=== PATIENT | female | born 1980 | race Asian ===

== ENCOUNTER → 2021-07-18 | Outpatient (CLI) | payer OTHER ==
[2021-07-18 11:11] LABS: PLATELET COUNT, AUTOMATED 240 10^3/uL (150-450)
[2021-07-18 11:27] LABS: INR 0.97; PROTHROMBIN TIME 13.3 SECONDS (12.7-14.5)
[2021-07-18 11:28] LABS: PARTIAL THROMBOPLASTIN TIME 29.2 SECONDS (25.9-37.0)
[2021-07-18 12:19] LABS: ALBUMIN 3.7 GM/DL (3.2-5.2); ALT/SGPT 52 U/L (12-78); BILIRUBIN,DIRECT 0.1 MG/DL (0.0-0.2); BILIRUBIN,TOTAL 0.5 MG/DL (0.2-1.0); BLOOD UREA NITROGEN 12 MG/DL (7-18); FERRITIN 140 NG/ML (8-252); GLOMERULAR FILTRATION RATE > 60.0 (>60); HEPATITIS B SURFACE ANTIGEN NEGATIVE (NEGATIVE); IRON (FE) 61 UG/DL (50-170); PERCENT SATURATION 18.8 % (13.2-45.0); TOTAL IRON BINDING CAPACITY 324 UG/DL (250-450); TOTAL PROTEIN 7.9 GM/DL (6.4-8.2)
[2021-07-18 13:33] LABS: HEPATITIS C VIRUS ABY INDEX 0.1 INDEX (<0.8)
== END ==
LOC: M LAB 09:51
PROVIDERS: ATTEND Internal Medicine Gastroenterology
DX: K76.89 Other specified diseases of liver (principal)

== ENCOUNTER → 2021-07-28 | Outpatient (CLI) | payer OTHER ==
[~2021-07-28] MED LIST: AMIT25TA17 PO; CETI10CH PO; INSUH10VL SC; LISI20TA33 PO; MAGN400T33 PO; METF10004 PO; PANT20TA6 PO; PROP80TA PO; SUMA50TA2 PO; TRES100I SC; TRUL0.5I SC; ZONI25CA13 PO; [UNRECOGNIZED DRUG - CODE] PO
== END ==
LOC: M WHC 07:24
PROVIDERS: ATTEND Internal Medicine Gastroenterology
DX: K74.60 Unspecified cirrhosis of liver (principal)

== ENCOUNTER 2021-07-29 11:58 | Day surgery (SDC) | payer OTHER ==
[~2021-07-29] VITALS: Ht 170.2 cm; Wt 110.0 kg
[~2021-07-29 11:58] MED LIST changes: +NS 1,000 ML IV ONE
[2021-07-29] MEDS ORDERED: fentaNYL 100 MCG/2 ML INJECTION As Ordered ONE (12:42)
[2021-07-29] MEDS ORDERED: LIDOCAINE 2% 100MG/5ML SDV (FOR ANES.) As Ordered ONE (13:31)
[2021-07-29] MEDS ORDERED: propofoL 200 MG/20 ML VIAL As Ordered ONE (13:31)
[2021-07-29 14:30] VITALS: BP 113/66
== END 2021-07-29 14:49 | disposition home or self-care (01) ==
LOC: M OPP 11:58 → EDUNIT# 14:45 → M OPP 14:49
PROVIDERS: ATTEND Internal Medicine Gastroenterology
DX: K74.60 Unspecified cirrhosis of liver (principal); K22.89 Other specified disease of esophagus; K29.70 Gastritis, unspecified, without bleeding; K31.84 Gastroparesis; E10.9 Type 1 diabetes mellitus without complications; Z80.0 Family history of malignant neoplasm of digestive organs; Z79.4 Long term (current) use of insulin; Z79.899 Other long term (current) drug therapy
CPT/HCPCS: 43239; 81025; 88305; J3010

== ENCOUNTER → 2021-11-12 | Outpatient (CLI) | payer OTHER ==
[~2021-11-12] MED LIST changes: -NS 1,000 ML IV ONE
== END ==
LOC: M SLEEP 20:00
PROVIDERS: ATTEND Physician Assistant
DX: G47.33 Obstructive sleep apnea (adult) (pediatric) (principal); R40.0 Somnolence

== ENCOUNTER → 2022-01-05 | Outpatient (CLI) | payer OTHER ==
[2022-01-05 10:23] LABS: BASO # 0.1 10^3/uL (0.0-0.2); BASO % 0.7 % (0.0-1.0); EOS # 0.2 10^3/uL (0.0-0.5); EOS % 3.4 % (0.0-3.0); HEMATOCRIT 47.5 % (36.0-47.0); HEMOGLOBIN 15.4 g/dl (12.0-15.5); LYMPH % 29.9 % (24.0-44.0); MEAN CORPUSCULAR HEMOGLOBIN 27.7 pg (27.0-33.0); MEAN CORPUSCULAR HGB CONC 32.4 g/dl (32.0-36.5); MEAN CORPUSCULAR VOLUME 85.4 fl (80.0-96.0); MONO # 0.4 10^3/uL (0.0-0.8); MONO % 6.4 % (2.0-8.0); NEUTROPHILS # 3.9 10^3/uL (1.5-8.5); NEUTROPHILS % 59.2 % (36.0-66.0); PLATELET COUNT, AUTOMATED 211 10^3/uL (150-450); RED BLOOD COUNT 5.56 10^6/uL (4.00-5.40); WHITE BLOOD COUNT 6.7 10^3/uL (4.0-10.0)
[2022-01-05 10:57] LABS: ALT/SGPT 42 U/L (12-78); BLOOD UREA NITROGEN 9 MG/DL (7-18); CREATININE FOR GFR 0.64 MG/DL (0.55-1.30); GLOMERULAR FILTRATION RATE > 60.0 (>60)
[2022-01-05 10:58] LABS: ALBUMIN 3.7 GM/DL (3.2-5.2); BILIRUBIN,DIRECT 0.2 MG/DL (0.0-0.2); BILIRUBIN,TOTAL 0.4 MG/DL (0.2-1.0); CHOLESTEROL LEVEL 193 MG/DL (<200); CHOLESTEROL RISK RATIO 3.641 (<5); HDL CHOLESTEROL 53 MG/DL (>40); LDL CHOLESTEROL 112 MG/DL (<100); NON-HDL-C 140 MG/DL; TOTAL PROTEIN 7.8 GM/DL (6.4-8.2); TRIGLYCERIDES LEVEL 138 MG/DL (<150)
== END ==
LOC: M RAD 08:29
PROVIDERS: ATTEND Internal Medicine Gastroenterology
DX: K74.60 Unspecified cirrhosis of liver (principal)

== ENCOUNTER → 2022-01-21 | Outpatient (CLI) | payer OTHER | LOC: M SLEEP 20:00 | PROVIDERS: ATTEND Physician Assistant | DX: G47.33 Obstructive sleep apnea (adult) (pediatric) (principal) ==

== ENCOUNTER 2023-06-08 14:25 | Emergency (ER) | payer OTHER ==
[~2023-06-08] VITALS: Ht 170.2 cm; Wt 107.0 kg
[~2023-06-08 14:25] MED LIST changes: -AMIT25TA17 PO; +AMIT25TA19 PO
[2023-06-08 15:14] LABS: BASO % 0.4 % (0.0-1.0); EOS # 0.2 10^3/uL (0.0-0.5); EOS % 2.7 % (0.0-3.0); HEMATOCRIT 45.7 % (36.0-47.0); HEMOGLOBIN 15.3 g/dl (12.0-15.5); LYMPH # 2.2 10^3/uL (1.5-5.0); LYMPH % 26.7 % (24.0-44.0); MEAN CORPUSCULAR HEMOGLOBIN 28.5 pg (27.0-33.0); MEAN CORPUSCULAR HGB CONC 33.5 g/dl (32.0-36.5); MEAN CORPUSCULAR VOLUME 85.1 fl (80.0-96.0); MONO # 0.6 10^3/uL (0.0-0.8); MONO % 6.7 % (2.0-8.0); NEUTROPHILS # 5.2 10^3/uL (1.5-8.5); NEUTROPHILS % 63.3 % (36.0-66.0); PLATELET COUNT, AUTOMATED 222 10^3/uL (150-450); RED BLOOD COUNT 5.37 10^6/uL (4.00-5.40); WHITE BLOOD COUNT 8.2 10^3/uL (4.0-10.0)
[2023-06-08 15:36] LABS: C REACTIVE PROTEIN QUANTITATIV < 0.40 MG/DL (<1.0)
[2023-06-08 15:38] LABS: BLOOD UREA NITROGEN 11 MG/DL (9-23); CALCIUM LEVEL 8.9 MG/DL (8.5-10.1); CARBON DIOXIDE LEVEL 29 MMOL/L (20-31); CHLORIDE LEVEL 102 MMOL/L (98-107); CREATININE FOR GFR 0.54 MG/DL (0.55-1.30); GLOMERULAR FILTRATION RATE > 60.0 (>58); GLUCOSE, FASTING 149 MG/DL (60-100); POTASSIUM SERUM 4.4 MMOL/L (3.5-5.1); SODIUM LEVEL 136 MMOL/L (136-145)
[2023-06-08 15:40] LABS: THYROID STIMULATING HORMONE 2.129 uIU/ML (0.55-4.78)
[2023-06-08 15:45] LABS: ERYTHROCYTE SEDIMENTATION RATE 20 mm/hr (0-20)
[2023-06-08 15:47] LABS: HCG, SERUM QUALITATIVE NEGATIVE (NEGATIVE)
[2023-06-08] MEDS ORDERED: LANTINJ4 SC (16:44)
[2023-06-08] MEDS ORDERED: HOME MED LIST COMPLETE! XX SCH (16:45)
[2023-06-08] MEDS: NS 1,000 ML IV ONE (17:04)
[2023-06-08] MEDS: ONDANSETRON 4MG 2ML VIAL IV ONE (17:04)
[2023-06-08] MEDS: KETOROLAC 30 MG/ML 1ML VIAL IV ONE (17:05)
[2023-06-08 17:35] LABS: AMPHETAMINES LEVEL URINE NEGATIVE (NEGATIVE); BARBITURATES URINE NEGATIVE (NEGATIVE); BENZODIAZEPINES URINE NEGATIVE (NEGATIVE); COCAINE METABOLITE URINE NEGATIVE (NEGATIVE); METHADONE URINE NEGATIVE (NEGATIVE); OPIATES URINE NEGATIVE (NEGATIVE)
[2023-06-08 17:36] LABS: CANNABINOIDS URINE NEGATIVE (NEGATIVE); PHENCYCLIDINE URINE NEGATIVE (NEGATIVE)
[2023-06-08 17:56] LABS: RSV AMPLIFICATION NEGATIVE (NEGATIVE)
[2023-06-08 17:58] LABS: FREE T4 0.97 NG/DL (0.89-1.76)
[2023-06-08 18:15] LABS: CK-MB VALUE MASS 1.1 NG/ML (<3.6)
[2023-06-08 18:16] LABS: MB/CK RELATIVE INDEX 0.7 (< OR =4)
[2023-06-08] MEDS: TOPIRAMATE (TopAMAX) 25 MG TAB PO ONE (18:52)
[2023-06-08] MEDS: LORazepam 2 MG TAB PO ONE (18:59)
[2023-06-08] MEDS ORDERED: TOPI-21 PO (20:56)
[2023-06-08] MEDS ORDERED: AMIT50TA PO (20:56)
[2023-06-08] MEDS: diazePAM 2 MG TAB PO ONE (21:15)
[2023-06-08 21:38] VITALS: BP 151/87; TEMP 97.4; O2SAT 98
== END 2023-06-08 21:42 | disposition home or self-care (01) ==
LOC: M ED 14:25
DX: G43.809 Other migraine, not intractable, without status migrainosus (principal); E11.9 Type 2 diabetes mellitus without complications; I10 Essential (primary) hypertension; Z79.899 Other long term (current) drug therapy; Z79.4 Long term (current) use of insulin; Z79.84 Long term (current) use of oral hypoglycemic drugs
CPT/HCPCS: 70450; 70551; 71045; 80048; 80307; 81001; 82550; 82553; 83735; 84439; 84443; 84484; 84703; 85025; 85652; 86140; 87631; 93005; 96374; 96375; 99284; J1885; J2405